=== PATIENT | male | born 1945 | race Caucasian/White ===

== ENCOUNTER 2024-02-29 10:00 | Emergency (ER) | payer MEDICARE ==
[~2024-02-29] VITALS: Ht 172.7 cm; Wt 94.7 kg
[2024-02-29] MEDS: BOOSTRIX VACCINE (TETANUS/DIPHTH/ACEL. PERTUSSIS) 0.5ML SYR IM.IMMUN ONE (11:46)
[2024-02-29] MEDS: LIDOCAINE 2% MDV 20ML VIAL SC ONE (11:48)
[2024-02-29] MEDS ORDERED: ATEN25TA PO (12:21)
[2024-02-29 13:39] VITALS: BP 127/58; TEMP 98.3; O2SAT 97
== END 2024-02-29 13:50 | disposition home or self-care (01) ==
LOC: M ED 10:00 → EDBD 10:00 → M ED 13:50
DX: S52.532A Colles' fracture of left radius, initial encounter for closed fracture (principal); W01.0XXA Fall on same level from slipping, tripping and stumbling without subsequent striking against object, initial encounter; Y92.009 Unspecified place in unspecified non-institutional (private) residence as the place of occurrence of the external cause; Y93.9 Activity, unspecified; Y99.9 Unspecified external cause status; I10 Essential (primary) hypertension; R25.1 Tremor, unspecified; Z23 Encounter for immunization
CPT/HCPCS: 73090; 73110; 90471; 90715; 96372; 99284; J0665

== ENCOUNTER 2025-05-25 11:06 | Inpatient (IN) | payer MEDICARE ==
[~2025-05-25] VITALS: Ht 170.2 cm; Wt 78.6 kg
[~2025-05-25 11:06] MED LIST: ATEN25TA PO
[2025-05-25] MEDS ORDERED: MORPHINE 2 MG/ML 1 ML VIAL IV PRN (12:30)
[2025-05-25] MEDS: NS (Normal Saline) 0.9% 1,000 ML IV SCH (13:05)
[2025-05-25 13:16] LABS: BASO # 0.0 10^3/uL (0.0-0.2); BASO % 0.4 % (0.0-1.0); EOS # 0.1 10^3/uL (0.0-0.5); EOS % 0.8 % (0.0-3.0); LYMPH # 0.9 10^3/uL (1.5-5.0); LYMPH % 12.1 % (24.0-44.0); MONO # 0.6 10^3/uL (0.0-0.8); MONO % 7.9 % (2.0-8.0); NEUTROPHILS # 6.0 10^3/uL (1.5-8.5); NEUTROPHILS % 78.4 % (36.0-66.0); PLATELET COUNT, AUTOMATED 260 10^3/uL (150-450)
[2025-05-25 13:43] LABS: INR 1.1
[2025-05-25] MEDS: AZITHROMYCIN 250 MG TABLET PO ONE (13:46)
[2025-05-25] MEDS: cefTRIAXone SOD 1 GM in DEXTROSE 5% (D5W) ADV/MINI-BAG 50 ML IV ONE (13:46)
[2025-05-25 13:50] LABS: ALT/SGPT 18.0 U/L (7.0-40); AST/SGOT 34.0 U/L (<34); CALCIUM LEVEL 9.2 MG/DL (8.3-10.6); CARBON DIOXIDE LEVEL 26.0 MMOL/L (20-31); CHLORIDE LEVEL 93.0 MMOL/L (98-107); CREATININE FOR GFR 1.2 MG/DL (0.70-1.30); GLOMERULAR FILTRATION RATE 61.9 (>42); POTASSIUM SERUM 4.1 MMOL/L (3.5-5.1); SODIUM LEVEL 131.0 MMOL/L (136-145)
[2025-05-25] MEDS ORDERED: MOM 30 ML SUSPENSION UDC PO PRN (14:50)
[2025-05-25] MEDS ORDERED: MAALOX 30 ML SUSP *UDC PO PRN (14:50)
[2025-05-25] MEDS ORDERED: HOME MED LIST COMPLETE! XX SCH (15:25)
[2025-05-25 17:57] VITALS: BP 141/86; TEMP 97.9; O2SAT 98
[2025-05-25 20:03] VITALS: BP 143/79; TEMP 98; O2SAT 97
[2025-05-25 20:45] VITALS: BP 143/79; TEMP 98; O2SAT 97
[2025-05-25] MEDS: DOCUSATE SODIUM 100 MG CAPSULE PO SCH (21:00)
[2025-05-26 03:37] VITALS: BP 140/76; TEMP 98.3; O2SAT 97
[2025-05-26 06:47] LABS: BASO # 0.1 10^3/uL (0.0-0.2); BASO % 0.8 % (0.0-1.0); EOS # 0.1 10^3/uL (0.0-0.5); EOS % 1.1 % (0.0-3.0); LYMPH # 1.0 10^3/uL (1.5-5.0); LYMPH % 15.9 % (24.0-44.0); MONO # 0.6 10^3/uL (0.0-0.8); MONO % 9.7 % (2.0-8.0); NEUTROPHILS # 4.6 10^3/uL (1.5-8.5); NEUTROPHILS % 72.0 % (36.0-66.0); PLATELET COUNT, AUTOMATED 234 10^3/uL (150-450)
[2025-05-26 07:18] LABS: ALT/SGPT 14.0 U/L (7.0-40); AST/SGOT 28.0 U/L (<34); CALCIUM LEVEL 8.7 MG/DL (8.3-10.6); CARBON DIOXIDE LEVEL 26.0 MMOL/L (20-31); CHLORIDE LEVEL 97.0 MMOL/L (98-107); CREATININE FOR GFR 1.23 MG/DL (0.70-1.30); GLOMERULAR FILTRATION RATE 60.1 (>42); MAGNESIUM LEVEL 2.1 MG/DL (1.8-2.4); POTASSIUM SERUM 4.2 MMOL/L (3.5-5.1); SODIUM LEVEL 135.0 MMOL/L (136-145)
[2025-05-26] MEDS: ENOXAPARIN 40 MG/0.4 ML SYRINGE (J1650 PER 10MG) SC SCH (08:31)
[2025-05-26 11:49] VITALS: BP 146/93; TEMP 98.1; O2SAT 97
[2025-05-26] MEDS: ACETAMINOPHEN 325 MG TAB PO PRN (12:08)
[2025-05-26] MEDS: traMADol 50 MG TAB PO PRN (12:59)
[2025-05-26] MEDS: ANALGESIC BALM CRM 3 OZ TOP SCH (15:50)
[2025-05-26 20:34] VITALS: BP 161/77; TEMP 98.1; O2SAT 96
[2025-05-27 05:01] VITALS: BP 130/65; TEMP 98.7; O2SAT 97
[2025-05-27 07:15] LABS: BASO # 0.0 10^3/uL (0.0-0.2); BASO % 0.5 % (0.0-1.0); EOS # 0.1 10^3/uL (0.0-0.5); EOS % 0.9 % (0.0-3.0); LYMPH # 0.8 10^3/uL (1.5-5.0); LYMPH % 12.6 % (24.0-44.0); MONO # 0.5 10^3/uL (0.0-0.8); MONO % 7.6 % (2.0-8.0); NEUTROPHILS # 5.0 10^3/uL (1.5-8.5); NEUTROPHILS % 77.8 % (36.0-66.0); PLATELET COUNT, AUTOMATED 246 10^3/uL (150-450)
[2025-05-27 07:45] LABS: ALT/SGPT 13.0 U/L (7.0-40); AST/SGOT 28.0 U/L (<34); CALCIUM LEVEL 8.7 MG/DL (8.3-10.6); CARBON DIOXIDE LEVEL 25.0 MMOL/L (20-31); CHLORIDE LEVEL 94.0 MMOL/L (98-107); CREATININE FOR GFR 1.13 MG/DL (0.70-1.30); GLOMERULAR FILTRATION RATE 66.5 (>42); MAGNESIUM LEVEL 2.0 MG/DL (1.8-2.4); POTASSIUM SERUM 4.5 MMOL/L (3.5-5.1); SODIUM LEVEL 131.0 MMOL/L (136-145)
[2025-05-27] MEDS ORDERED: CYCLOBENZAPRINE 5 MG TABLET PO PRN (08:05)
[2025-05-27 09:07] LABS: OSMOLALITY SERUM 282.0 MOSM/KG (280-301)
[2025-05-27] MEDS: NS (Normal Saline) 0.9% 1,000 ML IV SCH (09:31)
[2025-05-27 09:59] LABS: CHLORIDE,RANDOM URINE 56.0 MMOL/L; POTASSIUM RANDOM URINE 21.0 MMOL/L; SODIUM,RANDOM URINE 57.0 MMOL/L
[2025-05-27 12:00] VITALS: BP 139/83; TEMP 98.5; O2SAT 99
[2025-05-27 12:48] LABS: CALCIUM LEVEL 8.2 MG/DL (8.3-10.6); CARBON DIOXIDE LEVEL 24.0 MMOL/L (20-31); CHLORIDE LEVEL 95.0 MMOL/L (98-107); CREATININE FOR GFR 1.07 MG/DL (0.70-1.30); GLOMERULAR FILTRATION RATE 71.0 (>42); POTASSIUM SERUM 3.9 MMOL/L (3.5-5.1); SODIUM LEVEL 130.0 MMOL/L (136-145)
[2025-05-27 16:17] LABS: CORTISOL AM 26.4 UG/DL (4.3-22.4); FREE T4 1.3 NG/DL (0.89-1.76)
[2025-05-27 16:25] LABS: CALCIUM LEVEL 8.2 MG/DL (8.3-10.6); CARBON DIOXIDE LEVEL 26.0 MMOL/L (20-31); CHLORIDE LEVEL 96.0 MMOL/L (98-107); CREATININE FOR GFR 1.07 MG/DL (0.70-1.30); GLOMERULAR FILTRATION RATE 71.0 (>42); POTASSIUM SERUM 3.8 MMOL/L (3.5-5.1); SODIUM LEVEL 132.0 MMOL/L (136-145)
[2025-05-27 20:21] VITALS: BP 130/93; TEMP 98.3; O2SAT 96
[2025-05-28 04:15] VITALS: BP 156/83; TEMP 98.3; O2SAT 97
[2025-05-28 07:20] LABS: BASO # 0.1 10^3/uL (0.0-0.2); BASO % 0.9 % (0.0-1.0); EOS # 0.1 10^3/uL (0.0-0.5); EOS % 2.1 % (0.0-3.0); LYMPH # 0.8 10^3/uL (1.5-5.0); LYMPH % 15.7 % (24.0-44.0); MONO # 0.5 10^3/uL (0.0-0.8); MONO % 8.9 % (2.0-8.0); NEUTROPHILS # 3.8 10^3/uL (1.5-8.5); NEUTROPHILS % 71.5 % (36.0-66.0); PLATELET COUNT, AUTOMATED 205 10^3/uL (150-450)
[2025-05-28 07:47] LABS: ALT/SGPT 12.0 U/L (7.0-40); AST/SGOT 27.0 U/L (<34); CALCIUM LEVEL 8.5 MG/DL (8.3-10.6); CARBON DIOXIDE LEVEL 26.0 MMOL/L (20-31); CHLORIDE LEVEL 99.0 MMOL/L (98-107); CREATININE FOR GFR 1.19 MG/DL (0.70-1.30); GLOMERULAR FILTRATION RATE 62.5 (>42); MAGNESIUM LEVEL 2.0 MG/DL (1.8-2.4); POTASSIUM SERUM 4.0 MMOL/L (3.5-5.1); SODIUM LEVEL 135.0 MMOL/L (136-145)
[2025-05-28] MEDS ORDERED: COLA100C5 PO (10:46)
[2025-05-28] MEDS ORDERED: ENOX40IN3 SC (10:46)
[2025-05-28] MEDS ORDERED: ACET32TAB PO (10:46)
[2025-05-28] MEDS ORDERED: OXYC-517 PO (10:46)
[2025-05-28] MEDS ORDERED: SODI1TAB6 PO (10:46)
[2025-05-28 12:00] VITALS: BP 118/69; TEMP 98.4; O2SAT 98
[2025-05-28] MEDS: SODIUM CHLORIDE 1 GM TAB PO SCH (12:24)
[2025-05-28 19:43] VITALS: BP 123/76; TEMP 98.3; O2SAT 97
[2025-05-29 03:36] VITALS: BP 154/81; TEMP 98; O2SAT 98
[2025-05-29 07:16] LABS: CALCIUM LEVEL 8.6 MG/DL (8.3-10.6); CARBON DIOXIDE LEVEL 29.0 MMOL/L (20-31); CHLORIDE LEVEL 99.0 MMOL/L (98-107); CREATININE FOR GFR 1.16 MG/DL (0.70-1.30); GLOMERULAR FILTRATION RATE 64.5 (>42); POTASSIUM SERUM 4.4 MMOL/L (3.5-5.1); SODIUM LEVEL 136.0 MMOL/L (136-145)
[2025-05-30 03:37] VITALS: BP 185/84; TEMP 97.9; O2SAT 98
[2025-05-30 08:15] LABS: CALCIUM LEVEL 8.7 MG/DL (8.3-10.6); CARBON DIOXIDE LEVEL 28.0 MMOL/L (20-31); CHLORIDE LEVEL 98.0 MMOL/L (98-107); CREATININE FOR GFR 1.02 MG/DL (0.70-1.30); GLOMERULAR FILTRATION RATE 75.2 (>42); POTASSIUM SERUM 4.3 MMOL/L (3.5-5.1); SODIUM LEVEL 134.0 MMOL/L (136-145)
[2025-05-31 03:30] VITALS: BP 141/79; TEMP 98.1; O2SAT 96
[2025-06-01 04:17] VITALS: BP 125/73; TEMP 98.2; O2SAT 98
[2025-06-02 03:53] VITALS: BP 125/72; TEMP 98.1; O2SAT 97
[2025-06-02] MEDS ORDERED: CYCL5TAB4 PO (12:56)
== END 2025-06-02 13:44 | DRG 552 ==
LOC: M ED 11:06 → EDBD 11:06 → M ED INP 14:49 → M MSPAV 17:40 → UNDODISIN 05-28 10:30
PROVIDERS: ADMIT Internal Medicine; ATTEND Internal Medicine
DX: S32.011A Stable burst fracture of first lumbar vertebra, initial encounter for closed fracture (principal); Z59.01 Sheltered homelessness; E22.2 Syndrome of inappropriate secretion of antidiuretic hormone; G25.0 Essential tremor; R26.81 Unsteadiness on feet; W18.30XA Fall on same level, unspecified, initial encounter; Y92.009 Unspecified place in unspecified non-institutional (private) residence as the place of occurrence of the external cause